=== PATIENT | female | born 1950 | race Caucasian/White ===

== ENCOUNTER → 2016-08-12 | Outpatient (CLI) | payer MEDICARE ==
--- NOTE | 2016-08-12 11:38 | REP ---
LOW-DOSE CT STUDY OF THE CHEST WITHOUT CONTRAST: LUNG CANCER SCREENING STUDY. HISTORY: Tobacco use. Comparison chest x-ray is from November 22, 2008. FINDINGS: There is a granulomatous calcified nodule in the right upper lobe centrally. There are small granulomatous lymph node residuals in the right hilum and left hilum. In addition, there is a 4 mm noncalcified pulmonary nodule in the superior segment of the right lower lobe on image #35 of 95 in today's study. There is some adjacent nodularity as well. No other pulmonary mass or nodule is seen. IMPRESSION: Positive low-dose lung cancer screening CT study. 4 mm pulmonary nodule noncalcified superior segment right lower lobe merits follow-up. Follow-up chest CT study is suggested by Fleischner Society criteria in 6 months. Signed by Jerzy Choudhary MD 08/12/2016 01:31 P
== END ==
LOC: M RAD 10:00
PROVIDERS: ATTEND Internal Medicine
DX: Z12.2 Encounter for screening for malignant neoplasm of respiratory organs (principal); R91.1 Solitary pulmonary nodule; F17.210 Nicotine dependence, cigarettes, uncomplicated

== ENCOUNTER → 2017-05-26 | Outpatient (REF) | payer MEDICARE | LOC: M LAB REF 18:19 | PROVIDERS: ATTEND Internal Medicine | DX: Z11.59 Encounter for screening for other viral diseases (principal) ==

== ENCOUNTER → 2017-07-18 | Outpatient (CLI) | payer MEDICARE | LOC: M RAD 12:33 | DX: R91.1 Solitary pulmonary nodule (principal) | CPT/HCPCS: 71250 ==

== ENCOUNTER 2018-03-15 08:01 | Day surgery (SDC) | payer MEDICARE ==
[~2018-03-15 08:01] MED LIST: LIDOCAINE 2% INJ 100 MG/5 ML SDV (FOR ANES.) As Ordered
[2018-03-15] MEDS: NS 1,000 ML IV (08:19)
[2018-03-15] MEDS ORDERED: PROPOFOL 200 MG/20 ML VIAL As Ordered ×2 (08:30→10:15)
== END 2018-03-15 10:36 | disposition home or self-care (01) ==
LOC: M OPP 08:01
DX: Z12.11 Encounter for screening for malignant neoplasm of colon (principal); D12.4 Benign neoplasm of descending colon; K64.0 First degree hemorrhoids; E78.5 Hyperlipidemia, unspecified; E11.9 Type 2 diabetes mellitus without complications; K52.9 Noninfective gastroenteritis and colitis, unspecified; F41.9 Anxiety disorder, unspecified; R51 Headache; F17.210 Nicotine dependence, cigarettes, uncomplicated; Z79.899 Other long term (current) drug therapy; Z79.84 Long term (current) use of oral hypoglycemic drugs
CPT/HCPCS: 45380

== ENCOUNTER → 2020-04-03 | Outpatient (CLI) | payer MEDICARE ==
[~2020-04-03] MED LIST changes: +ATOR1TAB21 PO; +BUPR1TAB52 PO; +CIPR-249 PO; +FLAG500T PO; -LIDOCAINE 2% INJ 100 MG/5 ML SDV (FOR ANES.) As Ordered; +METF500T13 PO; +PARO40TA2 PO; +ZOFR4TAB14 PO
== END ==
LOC: M LABSMTC 09:27
PROVIDERS: ATTEND Orthopaedic Surgery
DX: Z11.59 Encounter for screening for other viral diseases (principal)

== ENCOUNTER → 2020-04-08 | Outpatient (REF) | payer MEDICARE | LOC: M LAB REF 15:04 | PROVIDERS: ATTEND Orthopaedic Surgery | DX: L85.9 Epidermal thickening, unspecified (principal) ==

== ENCOUNTER → 2021-10-01 | Outpatient (REF) | payer MEDICARE | LOC: M LAB REF 16:27 | PROVIDERS: ATTEND Internal Medicine | DX: D75.1 Secondary polycythemia (principal) ==

== ENCOUNTER → 2021-10-02 | Outpatient (REF) | payer MEDICARE | LOC: M LAB REF 17:27 | PROVIDERS: ATTEND Internal Medicine | DX: R31.9 Hematuria, unspecified (principal) ==

== ENCOUNTER → 2021-10-14 | Outpatient (CLI) | payer MEDICARE ==
[2021-10-14 13:41] LABS: BASO # 0.1 10^3/uL (0.0-0.2); BASO % 1.4 % (0.0-1.0); EOS # 0.3 10^3/uL (0.0-0.5); EOS % 3.2 % (0.0-3.0); HEMATOCRIT 60.2 % (36.0-47.0); HEMOGLOBIN 19.1 g/dl (12.0-15.5); LYMPH # 2.1 10^3/uL (1.5-5.0); LYMPH % 23.8 % (24.0-44.0); MEAN CORPUSCULAR HGB CONC 31.7 g/dl (32.0-36.5); MEAN CORPUSCULAR VOLUME 91.5 fl (80.0-96.0); MONO # 0.7 10^3/uL (0.0-0.8); MONO % 8.3 % (2.0-8.0); NEUTROPHILS # 5.6 10^3/uL (1.5-8.5); NEUTROPHILS % 62.5 % (36.0-66.0); PLATELET COUNT, AUTOMATED 455 10^3/uL (150-450); RED BLOOD COUNT 6.58 10^6/uL (4.00-5.40); WHITE BLOOD COUNT 8.9 10^3/uL (4.0-10.0)
[2021-10-14 17:08] LABS: LDH LACTATE DEHYDROGENASE 191 U/L (84-246)
[2021-10-14 17:54] LABS: VITAMIN B12 LEVEL 301 PG/ML (247-911)
[2021-10-15 07:08] LABS: ERYTHROPOIETIN 0.6 mIU/mL (2.6-18.5)
[2021-10-16 09:36] LABS: JAK2 MUTATIONS FOR PATH SENDOU See Pathology Report
== END ==
LOC: M PLALAB 10:57
PROVIDERS: ATTEND Internal Medicine Hematology
DX: D75.1 Secondary polycythemia (principal)

== ENCOUNTER → 2021-10-23 | Outpatient (CLI) | payer MEDICARE | LOC: M RAD 14:53 | PROVIDERS: ATTEND Internal Medicine | DX: N28.1 Cyst of kidney, acquired (principal); F17.210 Nicotine dependence, cigarettes, uncomplicated; R31.9 Hematuria, unspecified ==

== ENCOUNTER → 2021-12-01 | Outpatient (CLI) | payer MEDICARE ==
[~2021-12-01] MED LIST changes: +MELA1TAB31 PO; +VITAMIN D PO
[2021-12-01 14:00] LABS: BASO # 0.1 10^3/uL (0.0-0.2); BASO % 1.2 % (0.0-1.0); EOS # 0.3 10^3/uL (0.0-0.5); EOS % 2.9 % (0.0-3.0); HEMATOCRIT 64.6 % (36.0-47.0); LYMPH # 1.7 10^3/uL (1.5-5.0); LYMPH % 18.6 % (24.0-44.0); MEAN CORPUSCULAR HEMOGLOBIN 28.2 pg (27.0-33.0); MEAN CORPUSCULAR HGB CONC 31.4 g/dl (32.0-36.5); MEAN CORPUSCULAR VOLUME 89.6 fl (80.0-96.0); MONO # 0.7 10^3/uL (0.0-0.8); MONO % 7.1 % (2.0-8.0); NEUTROPHILS # 6.3 10^3/uL (1.5-8.5); NEUTROPHILS % 68.9 % (36.0-66.0); PLATELET COUNT, AUTOMATED 408 10^3/uL (150-450); RED BLOOD COUNT 7.21 10^6/uL (4.00-5.40); WHITE BLOOD COUNT 9.2 10^3/uL (4.0-10.0)
[2021-12-01 14:50] LABS: HEMOGLOBIN 20.3 g/dl (12.0-15.5)
== END ==
LOC: M PLALAB 11:33
PROVIDERS: ATTEND Internal Medicine Hematology
DX: M79.18 Myalgia, other site (principal)

== ENCOUNTER 2021-12-02 13:58 | Outpatient (CLI) | payer MEDICARE ==
[~2021-12-02] VITALS: Ht 160 cm; Wt 70.5 kg
[~2021-12-02 13:58] MED LIST changes: -MELA1TAB31 PO; -VITAMIN D PO
[2021-12-02 14:05] VITALS: BP 140/86
[2021-12-02] MEDS ORDERED: VITAMIN D PO (14:30)
[2021-12-02 15:00] VITALS: BP 135/84
[2021-12-02] MEDS ORDERED: MELA1TAB31 PO (15:04)
== END 2021-12-02 15:00 | disposition home or self-care (01) ==
LOC: M INFU 13:58
PROVIDERS: ATTEND Internal Medicine Hematology
DX: D45 Polycythemia vera (principal)

== ENCOUNTER 2021-12-09 14:05 | Outpatient (CLI) | payer MEDICARE ==
[~2021-12-09] VITALS: Ht 160 cm; Wt 70.5 kg
[~2021-12-09 14:05] MED LIST changes: +MELA1TAB31 PO; +VITAMIN D PO
[2021-12-09 14:15] VITALS: BP 144/82
[2021-12-09 14:31] LABS: HEMATOCRIT 61.2 % (36.0-47.0); HEMOGLOBIN 19.8 g/dl (12.0-15.5); MEAN CORPUSCULAR HEMOGLOBIN 28.2 pg (27.0-33.0); MEAN CORPUSCULAR HGB CONC 32.4 g/dl (32.0-36.5); MEAN CORPUSCULAR VOLUME 87.1 fl (80.0-96.0); PLATELET COUNT, AUTOMATED 477 10^3/uL (150-450); RED BLOOD COUNT 7.03 10^6/uL (4.00-5.40); WHITE BLOOD COUNT 11.4 10^3/uL (4.0-10.0)
== END 2021-12-09 15:15 | disposition home or self-care (01) ==
LOC: M INFU 14:05
PROVIDERS: ATTEND Internal Medicine Hematology
DX: D45 Polycythemia vera (principal)

== ENCOUNTER → 2021-12-16 | Outpatient (CLI) | payer MEDICARE ==
[~2021-12-16] VITALS: Ht 160 cm; Wt 70.5 kg
[2021-12-16 14:20] VITALS: BP 139/80
[2021-12-16 14:42] LABS: HEMATOCRIT 56.6 % (36.0-47.0); MEAN CORPUSCULAR HEMOGLOBIN 27.8 pg (27.0-33.0); MEAN CORPUSCULAR HGB CONC 32.2 g/dl (32.0-36.5); MEAN CORPUSCULAR VOLUME 86.5 fl (80.0-96.0); PLATELET COUNT, AUTOMATED 534 10^3/uL (150-450); RED BLOOD COUNT 6.54 10^6/uL (4.00-5.40); WHITE BLOOD COUNT 11.7 10^3/uL (4.0-10.0)
[2021-12-16 14:43] LABS: HEMOGLOBIN 18.2 g/dl (12.0-15.5)
[2021-12-16 15:22] VITALS: BP 140/70
== END ==
LOC: M INFU 13:55
PROVIDERS: ATTEND Internal Medicine Hematology
DX: D45 Polycythemia vera (principal)

== ENCOUNTER 2021-12-23 14:45 | Outpatient (CLI) | payer MEDICARE ==
[~2021-12-23] VITALS: Ht 160 cm; Wt 70.5 kg
[2021-12-23 14:45] VITALS: BP 129/82
[2021-12-23 15:08] LABS: HEMATOCRIT 55.8 % (36.0-47.0); HEMOGLOBIN 17.4 g/dl (12.0-15.5); MEAN CORPUSCULAR HEMOGLOBIN 27.1 pg (27.0-33.0); MEAN CORPUSCULAR HGB CONC 31.2 g/dl (32.0-36.5); MEAN CORPUSCULAR VOLUME 86.8 fl (80.0-96.0); PLATELET COUNT, AUTOMATED 594 10^3/uL (150-450); RED BLOOD COUNT 6.43 10^6/uL (4.00-5.40); WHITE BLOOD COUNT 9.5 10^3/uL (4.0-10.0)
[2021-12-23 15:45] VITALS: BP 110/71
== END 2021-12-30 14:51 | disposition home or self-care (01) ==
LOC: M INFU 14:45
PROVIDERS: ATTEND Internal Medicine Hematology
DX: D45 Polycythemia vera (principal)

== ENCOUNTER 2021-12-30 14:05 | Outpatient (CLI) | payer MEDICARE ==
[~2021-12-30] VITALS: Ht 160 cm; Wt 68.8 kg
[2021-12-30 14:18] VITALS: BP 134/71
[2021-12-30 14:25] LABS: HEMATOCRIT 49.5 % (36.0-47.0); HEMOGLOBIN 15.7 g/dl (12.0-15.5); MEAN CORPUSCULAR HEMOGLOBIN 27.2 pg (27.0-33.0); MEAN CORPUSCULAR HGB CONC 31.7 g/dl (32.0-36.5); MEAN CORPUSCULAR VOLUME 85.6 fl (80.0-96.0); PLATELET COUNT, AUTOMATED 550 10^3/uL (150-450); RED BLOOD COUNT 5.78 10^6/uL (4.00-5.40); WHITE BLOOD COUNT 10.1 10^3/uL (4.0-10.0)
[2022-01-11] MEDS ORDERED: BAYE325T13 PO (11:00)
== END 2021-12-30 14:51 | disposition home or self-care (01) ==
LOC: M INFU 14:05
PROVIDERS: ATTEND Internal Medicine Hematology
DX: D45 Polycythemia vera (principal)

== ENCOUNTER 2022-01-06 14:20 | Outpatient (CLI) | payer MEDICARE ==
[~2022-01-06] VITALS: Ht 160 cm; Wt 63.8 kg
[2022-01-06 14:20] VITALS: BP 148/75
[2022-01-06 15:34] LABS: HEMATOCRIT 47.8 % (36.0-47.0); HEMOGLOBIN 14.9 g/dl (12.0-15.5); MEAN CORPUSCULAR HEMOGLOBIN 26.2 pg (27.0-33.0); MEAN CORPUSCULAR HGB CONC 31.2 g/dl (32.0-36.5); PLATELET COUNT, AUTOMATED 564 10^3/uL (150-450); RED BLOOD COUNT 5.69 10^6/uL (4.00-5.40); WHITE BLOOD COUNT 10.1 10^3/uL (4.0-10.0)
== END 2022-01-06 16:00 ==
LOC: M INFU 14:20
PROVIDERS: ATTEND Internal Medicine Hematology
DX: D45 Polycythemia vera (principal)

== ENCOUNTER 2022-01-13 13:49 | Outpatient (CLI) | payer MEDICARE ==
[~2022-01-13] VITALS: Ht 160 cm; Wt 63.8 kg
[~2022-01-13 13:49] MED LIST changes: +BAYE325T13 PO
[2022-01-13 13:55] VITALS: BP 146/74
[2022-01-13 14:08] LABS: HEMATOCRIT 42.7 % (36.0-47.0); MEAN CORPUSCULAR HEMOGLOBIN 25.3 pg (27.0-33.0); MEAN CORPUSCULAR HGB CONC 30.4 g/dl (32.0-36.5); MEAN CORPUSCULAR VOLUME 83.1 fl (80.0-96.0); PLATELET COUNT, AUTOMATED 564 10^3/uL (150-450); RED BLOOD COUNT 5.14 10^6/uL (4.00-5.40); WHITE BLOOD COUNT 8.8 10^3/uL (4.0-10.0)
[2022-01-13 14:45] VITALS: BP 134/74
== END 2022-01-13 14:45 ==
LOC: M INFU 13:49
PROVIDERS: ATTEND Internal Medicine Hematology
DX: D45 Polycythemia vera (principal)

== ENCOUNTER 2022-01-20 14:07 | Outpatient (CLI) | payer MEDICARE ==
[2022-01-20 14:30] VITALS: BP 133/72
[2022-01-20 14:52] LABS: HEMATOCRIT 40.9 % (36.0-47.0); HEMOGLOBIN 12.5 g/dl (12.0-15.5); MEAN CORPUSCULAR HEMOGLOBIN 25.1 pg (27.0-33.0); MEAN CORPUSCULAR HGB CONC 30.6 g/dl (32.0-36.5); MEAN CORPUSCULAR VOLUME 82.1 fl (80.0-96.0); PLATELET COUNT, AUTOMATED 625 10^3/uL (150-450); RED BLOOD COUNT 4.98 10^6/uL (4.00-5.40); WHITE BLOOD COUNT 10.7 10^3/uL (4.0-10.0)
[2022-01-20 15:30] VITALS: BP 152/86
== END 2022-01-20 15:30 ==
LOC: M INFU 14:07
PROVIDERS: ATTEND Internal Medicine Hematology
DX: D45 Polycythemia vera (principal)

== ENCOUNTER → 2022-01-28 | Outpatient (CLI) | payer MEDICARE | LOC: M RAD 11:09 | PROVIDERS: ATTEND Specialist | DX: R16.1 Splenomegaly, not elsewhere classified (principal) ==

== ENCOUNTER → 2022-04-05 | Outpatient (REF) | payer MEDICARE ==
[2022-04-06 18:14] LABS: PERCENT SATURATION 5.2 % (13.2-45.0)
== END ==
LOC: M LAB REF 16:16
PROVIDERS: ATTEND Internal Medicine
DX: D64.9 Anemia, unspecified (principal)

== ENCOUNTER → 2022-04-08 | Outpatient (CLI) | payer MEDICARE | LOC: M WHC 12:17 | PROVIDERS: ATTEND Internal Medicine | DX: Z12.31 Encounter for screening mammogram for malignant neoplasm of breast (principal) ==

== ENCOUNTER → 2023-04-11 | Outpatient (CLI) | payer MEDICARE ==
[~2023-04-11] MED LIST changes: +BUPR-365 PO
== END ==
LOC: M WHC 13:57
PROVIDERS: ATTEND Internal Medicine
DX: Z12.31 Encounter for screening mammogram for malignant neoplasm of breast (principal)

== ENCOUNTER → 2024-02-21 | Outpatient (CLI) | payer MEDICARE ==
[~2024-02-21] MED LIST changes: +PHEN30CA21 PO
== END ==
LOC: M RAD 13:32
PROVIDERS: ATTEND Internal Medicine
DX: F17.211 Nicotine dependence, cigarettes, in remission (principal)

== ENCOUNTER 2024-04-12 20:34 | Emergency (ER) | payer MEDICARE ==
[~2024-04-12] VITALS: Ht 160 cm; Wt 71.2 kg
[2024-04-12] MEDS: KETOROLAC 30 MG/ML 1ML VIAL IV ONE (22:25)
[2024-04-12 22:41] LABS: BASO # 0.1 10^3/uL (0.0-0.2); BASO % 1.2 % (0.0-1.0); EOS # 0.2 10^3/uL (0.0-0.5); HEMATOCRIT 45.8 % (36.0-47.0); HEMOGLOBIN 12.9 g/dl (12.0-15.5); LYMPH # 2.3 10^3/uL (1.5-5.0); LYMPH % 20.2 % (24.0-44.0); MEAN CORPUSCULAR HEMOGLOBIN 19.6 pg (27.0-33.0); MEAN CORPUSCULAR HGB CONC 28.2 g/dl (32.0-36.5); MEAN CORPUSCULAR VOLUME 69.6 fl (80.0-96.0); MONO # 0.8 10^3/uL (0.0-0.8); MONO % 7.3 % (2.0-8.0); NEUTROPHILS # 7.8 10^3/uL (1.5-8.5); NEUTROPHILS % 68.9 % (36.0-66.0); PLATELET COUNT, AUTOMATED 668 10^3/uL (150-450); RED BLOOD COUNT 6.58 10^6/uL (4.00-5.40); WHITE BLOOD COUNT 11.3 10^3/uL (4.0-10.0)
[2024-04-12 23:10] LABS: BLOOD UREA NITROGEN 15 MG/DL (9-23); CALCIUM LEVEL 10.2 MG/DL (8.3-10.6); CARBON DIOXIDE LEVEL 28 MMOL/L (20-31); CHLORIDE LEVEL 104 MMOL/L (98-107); CREATININE FOR GFR 0.78 MG/DL (0.55-1.30); GLOMERULAR FILTRATION RATE > 60.0 (>39); GLUCOSE, FASTING 90 MG/DL (74-106); POTASSIUM SERUM 4.4 MMOL/L (3.5-5.1); SODIUM LEVEL 140 MMOL/L (136-145)
[2024-04-13] MEDS: methocarbamoL 500 MG TAB PO ONE (00:22)
[2024-04-13] MEDS ORDERED: METH-1164 PO (00:29)
[2024-04-13 01:00] VITALS: BP 173/82; TEMP 98.9; O2SAT 96
== END 2024-04-13 01:10 | disposition home or self-care (01) ==
LOC: M ED 20:34
DX: M54.32 Sciatica, left side (principal); D75.839 Thrombocytosis, unspecified; E78.5 Hyperlipidemia, unspecified; F41.9 Anxiety disorder, unspecified; F32.A Depression, unspecified; D45 Polycythemia vera; F17.290 Nicotine dependence, other tobacco product, uncomplicated; Z79.82 Long term (current) use of aspirin; Z79.84 Long term (current) use of oral hypoglycemic drugs; Z79.899 Other long term (current) drug therapy
CPT/HCPCS: 80048; 85025; 93971; 96374; 99284; J1885

== ENCOUNTER → 2024-05-02 | Outpatient (CLI) | payer MEDICARE ==
[~2024-05-02] MED LIST changes: +METH-1164 PO
== END ==
LOC: M WUC 13:21
PROVIDERS: ATTEND Internal Medicine
DX: M51.16 Intervertebral disc disorders with radiculopathy, lumbar region (principal)

== ENCOUNTER → 2024-05-03 | Outpatient (CLI) | payer MEDICARE | LOC: M WUC 14:45 | PROVIDERS: ATTEND Internal Medicine | DX: M25.552 Pain in left hip (principal) ==

== ENCOUNTER 2024-12-19 08:55 | Day surgery (SDC) | payer MEDICARE ==
[~2024-12-19] VITALS: Ht 160 cm; Wt 71.9 kg
[~2024-12-19 08:55] MED LIST changes: +BUPR-670 PO; -BUPR1TAB52 PO; +ECOT81TA5 PO; +GABA-1172 PO; +PHENYLEPHRINE 10% OPHTH SOL 5ML OD PRN
[2024-12-19] MEDS ORDERED: MIDAZOLAM INJ 2 MG/2 ML VIAL As Ordered ONE (10:15)
[2024-12-19] MEDS: TROPICAMIDE 1% OPHTH SOLN 15ML OD SCH (10:26)
[2024-12-19] MEDS: CYCLOPENTOLATE 1% OPHTH SOLN 2 ML BTL OD SCH (10:26)
[2024-12-19] MEDS: OFLOXACIN 0.3 % (OCUFLOX) OPTH SOL 5ML OD ONE (10:27)
[2024-12-19] MEDS: PHENYLEPHRINE 2.5% OPHTH SOL 2ML OD SCH (10:27)
[2024-12-19] MEDS: LIDOCAINE 3.5% 1 ML OPHTH TOPICAL GEL OU ONE (10:27)
[2024-12-19] MEDS: KETOROLAC 30 MG/ML 1 ML VIAL IV ONE (10:45)
[2024-12-19] MEDS: LIDOCAINE 1% SDV 5 ML VIAL As Ordered ONE (11:23)
[2024-12-19] MEDS: BSS IRRIG/VANCO(10MG)/TOBRA(5MG)/EPINEPH(1:1000-0.5CC)500ML BAG-ORONLY As Ordered ONE (11:26)
[2024-12-19] MEDS: CEFUROXIME 1 MG/0.1 ML INTRACAMERAL INJ As Ordered ONE (11:27)
[2024-12-19 11:37] VITALS: BP 121/92; TEMP 97; O2SAT 95
== END 2024-12-19 11:52 | disposition home or self-care (01) ==
LOC: M SDC 08:55
PROVIDERS: ATTEND Ophthalmology
DX: H25.11 Age-related nuclear cataract, right eye (principal)
CPT/HCPCS: 66984; 92015; J0697; J1885; J2250; J3010; V2632